=== PATIENT | female | born 1995 | race Caucasian/White ===

== ENCOUNTER 2016-11-12 19:27 | Emergency (ER) | payer MEDICAID, OTHER ==
[~2016-11-12] VITALS: Ht 175.3 cm; Wt 104.3 kg
--- NOTE | 2016-11-12 20:00 | NUR ---
PT BIB SELF C/O COUGH AND CONGESTION X3 DAYS. PER PT'S MOTHER, PT HAS BEEN COUGHING UP GREEN SPUTUM. DENIES HEMOPTYSIS. NAD NOTED. RESP EVEN UNLABORED. SKIN WARM NONDIAPHRORETIC. IN ER BED 09.
--- NOTE | 2016-11-12 22:16 | NUR ---
RESTING COMFORTABLY IN BED WITH PARENTS AT BEDSIDE, NAD NOTED.
[2016-11-12 22:46] VITALS: BP 141/75
--- NOTE | 2016-11-12 22:46 | NUR ---
DPatient discharged to home in stable condition. Written and verbal after care instructions given. Patient verbalizes understanding of instruction. NAD NOTED. AMBULATORY WITH STEADY GAIT.
== END 2016-11-12 22:47 | disposition home or self-care (01) ==
LOC: ER 19:31
DX: R05 Cough (principal); E11.9 Type 2 diabetes mellitus without complications; F20.9 Schizophrenia, unspecified; F32.9 Major depressive disorder, single episode, unspecified; Z88.2 Allergy status to sulfonamides; Z88.8 Allergy status to other drugs, medicaments and biological substances; F17.210 Nicotine dependence, cigarettes, uncomplicated
CPT/HCPCS: 71010-TC; 82962-TC; A4606; Z7610

== ENCOUNTER 2016-11-23 21:38 | Emergency (ER) | payer MEDICAID ==
[~2016-11-23] VITALS: Ht 175.3 cm; Wt 104.3 kg
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
[2016-11-23] MEDS ORDERED: METF500T4 PO (21:50)
[2016-11-23] MEDS ORDERED: OLANZAPINE 10 MG VIAL IM ONE ×2 (22:30)
[2016-11-23] MEDS ORDERED: WATER FOR INJECTION,STERILE 10 ML ONE (22:32)
--- NOTE | 2016-11-23 23:00 | NUR ---
Patient is sleeping comfortably at this time, mother at bedside. VSS.
--- NOTE | 2016-11-24 00:33 | NUR ---
Dr Ngo at bedside.
--- NOTE | 2016-11-24 00:59 | NUR ---
[place], mother's number is [phone].
--- NOTE | 2016-11-24 00:59 | NUR ---
Patient is discharged. Discharge instructions given to mom and verbalized understanding to instructions. Dr Ngo permit patient to sleep on bed until 0530. Mom said she is going to parts picker patient at 0530.
[2016-11-24 01:17] VITALS: BP 140/68
== END 2016-11-24 00:37 | disposition home or self-care (01) ==
LOC: ER 21:41
DX: F15.10 Other stimulant abuse, uncomplicated (principal); E11.9 Type 2 diabetes mellitus without complications; F32.9 Major depressive disorder, single episode, unspecified; F20.9 Schizophrenia, unspecified; Z88.2 Allergy status to sulfonamides; F17.210 Nicotine dependence, cigarettes, uncomplicated
CPT/HCPCS: 82962; 96372; 99283; A4606; J3490; Z7610